=== PATIENT | female | born 1975 | race Caucasian/White ===

== ENCOUNTER → 2017-08-18 | Outpatient (CLI) | payer OTHER ==
[~2017-08-18] MED LIST: BUPR-79 PO; IBUP600T44 PO; LISI-461 PO; MONT1TAB3 PO; VENL150C PO
[2017-08-18 11:37] LABS: HEMATOCRIT 40.1 % (37-47); HEMOGLOBIN 13.4 g/dL (12.0-16.0); MEAN CELL VOLUME 88.7 fL (80-100); MEAN CORPUSCULAR HEMOGLOBIN 29.6 pg (25-34); MEAN CORPUSCULAR HGB CONC 33.4 g/dl (32-36); MEAN PLATELET VOLUME 10.5 fL (7.4-10.4); PLATELET COUNT 309 K/uL (130-400); RED CELL DISTRIBUTION WIDTH CV 12.9 % (11.5-14.5); RED CELL DISTRIBUTION WIDTH SD 41.7 fL (36.4-46.3); WHITE BLOOD COUNT 5.41 K/uL (4.8-10.8)
[2017-08-18 11:44] LABS: BLOOD UREA NITROGEN 14 mg/dl (7-18); CALCIUM 8.5 mg/dl (8.5-10.1); CARBON DIOXIDE 25 mmol/L (21-32); CREATININE 0.64 mg/dl (0.60-1.20); GLUCOSE 82 mg/dl (70-99); SODIUM 138 mmol/L (136-145)
[2017-08-18 11:47] LABS: CHOLESTEROL 163 mg/dl (0-200); LDL CHOLESTEROL CALCULATED 97 mg/dl
== END | disposition home or self-care (01) ==
LOC: C.LABPBG 08:31
PROVIDERS: ATTEND Family Medicine
DX: I10 Essential (primary) hypertension (principal); Z13.220 Encounter for screening for lipoid disorders